=== PATIENT | male | born 1980 | race Caucasian/White ===

== ENCOUNTER 2018-03-25 15:41 | Emergency (ER) | payer BC ==
[~2018-03-25] VITALS: Ht 182.9 cm; Wt 102.3 kg
[2018-03-25 15:43] VITALS: BP 132/84; PULSE 89; TEMP 98.7
== END 2018-03-25 16:42 | disposition home or self-care (01) ==
LOC: COL.ER 15:41
DX: S46.212A Strain of muscle, fascia and tendon of other parts of biceps, left arm, initial encounter (principal); X50.0XXA Overexertion from strenuous movement or load, initial encounter; Y92.39 Other specified sports and athletic area as the place of occurrence of the external cause

== ENCOUNTER 2018-04-03 05:31 | Day surgery (SDC) | payer BC ==
[~2018-04-03] VITALS: Ht 182.9 cm; Wt 109.4 kg
[2018-04-03 06:57] VITALS: BP 128/74; PULSE 66; TEMP 97.9
[2018-04-03 08:00] VITALS: BP 124/69; PULSE 84; TEMP 97.8
[2018-04-03 08:15] VITALS: BP 118/67; PULSE 81
[2018-04-03 08:30] VITALS: BP 111/60; PULSE 86
[2018-04-03 08:45] VITALS: BP 117/58; PULSE 84
== END 2018-04-03 09:15 | disposition home or self-care (01) ==
LOC: SDCO 05:31
DX: M66.822 Spontaneous rupture of other tendons, left upper arm (principal)
CPT/HCPCS: A4565; C1713; J0690; J2250; J2405; J2704; J2795; J3010; J7120